=== PATIENT | male | born 1965 | race Two or more races ===

== ENCOUNTER → 2020-11-24 | Outpatient (CLI) | payer OTHER ==
[2020-11-24 12:54] LABS: ALBUMIN 3.5 g/dL (3.4-5.0); ANION GAP 5 mmol/L (5-15); CALCIUM 8.5 mg/dL (8.5-10.1); CHLORIDE 108 mmol/L (98-107); CHOLESTEROL, TOTAL 266 mg/dL (140-239)
[2020-11-24 13:04] LABS: ALANINE AMINOTRANSFERASE 30 U/L (12-78); ALKALINE PHOSPHATASE 69 U/L (45-117); BILIRUBIN,TOTAL 0.4 mg/dL (0.2-1.0); CHOL/HDL RATIO 2.8; CREATININE 1.19 mg/dL (0.7-1.3); HDL CHOL % 36 % (26-37); HDL CHOLESTEROL (DIRECT) 95 mg/dL (40-60); LDL CHOLESTEROL,CALCULATED 160 mg/dL (54-169); LDL/HDL RATIO 1.7 (0.5-3.0); TOTAL PROTEIN 7.5 g/dL (6.4-8.2); TRIGLYCERIDES 54 mg/dL (50-200); VLDL CHOLESTEROL 11 mg/dL (0-25)
== END | disposition home or self-care (01) ==
LOC: LAB 12:26
PROVIDERS: ATTEND Family Medicine
DX: Z13.1 Encounter for screening for diabetes mellitus (principal); Z12.5 Encounter for screening for malignant neoplasm of prostate; Z13.220 Encounter for screening for lipoid disorders; R03.0 Elevated blood-pressure reading, without diagnosis of hypertension
CPT/HCPCS: 36415; 80053; 80061; 83036; 84153; G0103

== ENCOUNTER → 2020-12-07 | Outpatient (CLI) | payer OTHER | END | disposition home or self-care (01) | LOC: CFH 07:05 | PROVIDERS: ATTEND Family Medicine | DX: N40.0 Benign prostatic hyperplasia without lower urinary tract symptoms (principal); N23 Unspecified renal colic | CPT/HCPCS: 76770 ==

== ENCOUNTER 2021-02-09 15:32 | Emergency (ER) | payer OTHER ==
[~2021-02-09] VITALS: Ht 182.9 cm; Wt 77.5 kg
--- NOTE | 2021-02-09 15:32 | NUR ---
BIBA C/O WORSENING LOW BACK PAIN SINCE LAST NIGHT, DENIES INJURY, RAD PAIN OR URIN S/S; PIV, BG 124, 200MCG [place], 2MG VERSED ENGINEERING MANAGER PER EMS; PT TRANSFERRED SELF [facility] TO [facility], CHANGED INTO GOWN, MONITORS IN PLACE, CALL LIGHT WITHIN REACH.
--- NOTE | 2021-02-09 15:45 | NUR ---
[facility] [phone]
[2021-02-09] MEDS ORDERED: ONDANSETRON 2MG/ML, 2ML IVPush ONE (16:00)
[2021-02-09] MEDS ORDERED: KETOROLAC 30 MG/1 ML IV ONE (16:00)
[2021-02-09] MEDS ORDERED: HYDROmorphone 1 MG/ML, 1ML INJ IVPush PRN (16:00)
--- NOTE | 2021-02-09 16:30 | NUR ---
PT LAYING ON GURNEY WITH C/O PAIN- REPOSITIONING HELPFUL, RESPONDS APPROP TO STAFF, VISITOR AT BS, COMFORT MEASURES PROVIDED, CALL LIGHT WITHIN REACH.
[2021-02-09] MEDS ORDERED: HYDROmorphone 2 MG/ML, 1ML ONE (16:56)
[2021-02-09] MEDS ORDERED: KETOROLAC 30 MG/1 ML ONE (16:57)
[2021-02-09] MEDS ORDERED: ONDANSETRON 2MG/ML, 2ML ONE (16:57)
--- NOTE | 2021-02-09 17:35 | NUR ---
PT LAYING ON GURNEY ABLE TO DOZE OFF AFTER PAIN MEDS, RESPONDS APPROP TO STAFF, NAD, VISITOR AT BS, NO NEEDS AT THIS TIME, CALL LIGHT WITHIN REACH.
--- NOTE | 2021-02-09 19:01 | NUR ---
REPORT GIVEN TO JUAN PABLO KEMP
[2021-02-09 19:39] VITALS: BP 117/68
--- NOTE | 2021-02-09 19:39 | NUR ---
Patient/Caregiver given discharge instructions and they have confirmed that they understand the instructions. Patient ambulatory with steady gait. NAD, all questions answered appropriately, denies additional needs at this time. No personal belongings left in room after discharge.
[2021-02-25] MEDS ORDERED: OXYC1TAB14 PO (12:09)
== END 2021-02-09 19:40 | disposition home or self-care (01) ==
LOC: ED 16:02
DX: S39.012A Strain of muscle, fascia and tendon of lower back, initial encounter (principal); X58.XXXA Exposure to other specified factors, initial encounter; Y93.89 Activity, other specified; Y92.89 Other specified places as the place of occurrence of the external cause; Y99.8 Other external cause status
CPT/HCPCS: 72110; 96374; 96375; 99284; J1170; J1885; J2405; J7512

== ENCOUNTER 2021-02-11 06:00 | Emergency (ER) | payer OTHER ==
[~2021-02-11] VITALS: Ht 182.9 cm; Wt 80.0 kg
[2021-02-11] MEDS ORDERED: KETOROLAC 30 MG/1 ML ONE (06:56)
[2021-02-11] MEDS ORDERED: HYDROmorphone 2 MG/ML, 1ML ONE (06:57)
[2021-02-11] MEDS ORDERED: KETOROLAC 30 MG/1 ML IM ONE (07:00)
[2021-02-11] MEDS ORDERED: HYDROmorphone 2 MG/ML, 1ML IM ONE (07:00)
--- NOTE | 2021-02-11 07:09 | NUR ---
PATIENT C/O 10/10 LOWER BACK PAIN. PATIENT MEDICATED PER eMAR, EDUCATED PATIENT ABOUT NEED FOR URINE SAMPLE. CONNECTED TO MONITOR, VSS, CALL LIGHT WITHIN REACH. AT BEDSIDE.
--- NOTE | 2021-02-11 07:29 | NUR ---
URINE COLLECTED AND WALKED TO LAB. PATIENT REPORTS RELIEF FROM PAIN WITH MEDICATION.
[2021-02-11 07:41] LABS: MICROSCOPIC AUTO
[2021-02-11 07:50] LABS: BASOPHILS % (AUTO) 0 % (0-1); EOSINOPHILS % (AUTO) 0 % (1-7); LYMPHOCYTES % (AUTO) 3 % (22-44); MEAN CORPUSCULAR HEMOGLOBIN 27.3 pg (27.5-34.5); MEAN CORPUSCULAR HGB CONC 32.7 g/dL (33.2-36.2); MEAN PLATELET VOLUME 8.7 fL (7.4-10.4); MONOCYTES % (AUTO) 6 % (2-9); NEUTROPHILS % (AUTO) 91 % (42-75); PLATELET COUNT 144 x10^3/uL (130-400); RED CELL DISTRIBUTION WIDTH 14.7 % (9.4-14.8)
[2021-02-11 07:53] LABS: ALBUMIN 3.2 g/dL (3.4-5.0); ANION GAP 9 mmol/L (5-15); CALCIUM 8.9 mg/dL (8.5-10.1); CHLORIDE 102 mmol/L (98-107); CREATININE 1.28 mg/dL (0.7-1.3)
--- NOTE | 2021-02-11 08:11 | NUR ---
PATIENT RESTING IN [facility], CONNECTED TO MONITOR, VSS, CALL LIGHT WITHIN REACH. AT BEDSIDE. PATIENT UP FOR RECHECK.
--- NOTE | 2021-02-11 09:10 | NUR ---
PATIENT RESTING IN [facility], CONNECTED TO MONITOR, VSS, CALL LIGHT WITHIN REACH, AT BEDSIDE. PATIENT UP FOR RECHECK.
[2021-02-11 10:32] VITALS: BP 97/54
--- NOTE | 2021-02-11 10:33 | NUR ---
Patient and spouse given discharge instructions and prescriptions and they have confirmed that they understand the instructions. Patient wheeled by significant other from ED. NAD, all questions answered appropriately, denies additional needs at this time. No personal belongings left in room after discharge.
[2021-02-25] MEDS ORDERED: OXYC1TAB14 PO (12:09)
== END 2021-02-11 10:34 | disposition home or self-care (01) ==
LOC: ED 07:54
DX: S39.012A Strain of muscle, fascia and tendon of lower back, initial encounter (principal); D72.829 Elevated white blood cell count, unspecified; X58.XXXA Exposure to other specified factors, initial encounter; Y93.89 Activity, other specified; Y92.89 Other specified places as the place of occurrence of the external cause; Y99.8 Other external cause status
CPT/HCPCS: 36415; 80048; 81001; 82040; 85025; 96372; 99285; J1170; J1885

== ENCOUNTER 2021-02-14 16:54 | Inpatient (IN) | payer OTHER ==
[~2021-02-14] VITALS: Ht 182.9 cm; Wt 79.4 kg
[2021-02-14 19:00] LABS: BASOPHILS % (AUTO) 1 % (0-1); EOSINOPHILS % (AUTO) 0 % (1-7); LYMPHOCYTES % (AUTO) 14 % (22-44); MEAN CORPUSCULAR HEMOGLOBIN 27.7 pg (27.5-34.5); MEAN CORPUSCULAR HGB CONC 33.2 g/dL (33.2-36.2); MEAN PLATELET VOLUME 8.9 fL (7.4-10.4); MONOCYTES % (AUTO) 12 % (2-9); NEUTROPHILS % (AUTO) 73 % (42-75); PLATELET COUNT 195 x10^3/uL (130-400); RED BLOOD COUNT 4.95 x10^6/uL (4.38-5.82); RED CELL DISTRIBUTION WIDTH 14.7 % (9.4-14.8)
[2021-02-14 19:27] LABS: ALBUMIN 2.4 g/dL (3.4-5.0); ANION GAP 6 mmol/L (5-15); CALCIUM 9.4 mg/dL (8.5-10.1); CHLORIDE 98 mmol/L (98-107)
[2021-02-14 19:41] LABS: ALANINE AMINOTRANSFERASE 177 U/L (12-78); ALKALINE PHOSPHATASE 216 U/L (45-117); BILIRUBIN,TOTAL 0.7 mg/dL (0.2-1.0); CREATININE 1.18 mg/dL (0.7-1.3); TOTAL PROTEIN 8.6 g/dL (6.4-8.2)
[2021-02-14] MEDS ORDERED: ONDANSETRON 2MG/ML, 2ML IVPush ONE (21:00)
[2021-02-14] MEDS ORDERED: HYDROmorphone 1 MG/ML, 1ML INJ IV ONE (21:00)
--- NOTE | 2021-02-14 21:00 | NUR ---
pt bladder scanned 277 ml, post void showed 94 ml. erp updated, lyons held. ua sent as clean catch
[2021-02-14] MEDS ORDERED: ONDANSETRON 2MG/ML, 2ML ONE (21:27)
[2021-02-14] MEDS ORDERED: HYDROmorphone 2 MG/ML, 1ML ONE (21:27)
[2021-02-14 21:34] LABS: MICROSCOPIC AUTO
--- NOTE | 2021-02-14 22:39 | NUR ---
pt at ct at this time
[2021-02-14] MEDS ORDERED: OMNIPAQUE 350 MG/ML, 100ML BOTTLE ONE (22:45)
[2021-02-15] MEDS ORDERED: HYDROcodone/APAP 10/325 MG TABLET PO ONE
[2021-02-15] MEDS ORDERED: HYDROcodone/APAP 10/325 MG TABLET ONE (00:03)
--- NOTE | 2021-02-15 00:20 | NUR ---
REPORT GIVEN TO VIRIDIANA SOLANO
[2021-02-15] MEDS ORDERED: ONDANSETRON ODT 4 MG PO PRN (00:30)
[2021-02-15] MEDS ORDERED: ONDANSETRON 2MG/ML, 2ML IVPush PRN (00:30)
[2021-02-15] MEDS ORDERED: ENALAPRILAT 1.25 MG/ML, 2ML IVPush PRN (00:30)
[2021-02-15 01:02] VITALS: BP 128/75
[2021-02-15] MEDS: DIPHENHYDRAMINE 25 MG CAPSULE PO PRN (01:36)
[2021-02-15] MEDS: KETOROLAC 30 MG/1 ML IV PRN ×2 (01:36→21:43)
[2021-02-15] MEDS ORDERED: METH100V PO (02:37)
[2021-02-15] MEDS ORDERED: NAPR-685 PO (02:37)
[2021-02-15] MEDS: PINK LADY ENEMA 490 ML BOTTLE PR ONE (06:04)
[2021-02-15] MEDS: morphine SULFATE 10 MG/ML, 1ML IVPush PRN ×4 (06:14→18:39)
[2021-02-15 06:30] VITALS: BP 118/74
[2021-02-15] MEDS: FINASTERIDE 5 MG TABLET PO SCH (08:50)
[2021-02-15] MEDS: POLYETHYLENE GLYCOL 17 GM PACKET PO SCH ×2 (08:50→20:14)
[2021-02-15] MEDS: LIDODERM 5% PATCH TD SCH (10:54)
[2021-02-15 13:23] VITALS: BP 106/68
[2021-02-15] MEDS ORDERED: GADOTERATE 7.5 MMOL/15ML SYR ONE (16:50)
[2021-02-15] MEDS ORDERED: VANCOMYCIN PER PHARMACY MC PRN (17:30)
[2021-02-15] MEDS ORDERED: PHARMACOKINETIC MONITORING MC PRN (18:00)
[2021-02-15] MEDS: PIPERACILLIN/TAZO 3.375 GM in DEXTROSE 5% 50 ML IVPB SCH (18:39)
[2021-02-15 19:46] VITALS: BP 121/78
[2021-02-15] MEDS: VANCOMYCIN 1,500 MG in SODIUM CHLORIDE 0.9% 250 ML IV SCH (20:14)
[2021-02-15] MEDS: MELATONIN 5 MG TABLET PO PRN (21:42)
[2021-02-16 01:24] VITALS: BP 143/76
[2021-02-16] MEDS: PINK LADY ENEMA 490 ML BOTTLE PR ONE (01:36)
[2021-02-16] MEDS: PIPERACILLIN/TAZO 3.375 GM in DEXTROSE 5% 50 ML IVPB SCH ×2 (02:00→10:33)
[2021-02-16] MEDS: ACETAMINOPHEN 325 MG TABLET PO PRN ×2 (03:33→19:55)
[2021-02-16 06:56] VITALS: BP 138/76
[2021-02-16] MEDS: morphine SULFATE 10 MG/ML, 1ML IVPush PRN ×3 (07:16→20:19)
[2021-02-16 08:10] LABS: BASOPHILS % (AUTO) 0 % (0-1); EOSINOPHILS % (AUTO) 0 % (1-7); LYMPHOCYTES % (AUTO) 16 % (22-44); MEAN CORPUSCULAR HEMOGLOBIN 27.3 pg (27.5-34.5); MEAN CORPUSCULAR HGB CONC 33.2 g/dL (33.2-36.2); MEAN PLATELET VOLUME 8.4 fL (7.4-10.4); MONOCYTES % (AUTO) 11 % (2-9); NEUTROPHILS % (AUTO) 73 % (42-75); PLATELET COUNT 219 x10^3/uL (130-400); RED BLOOD COUNT 4.37 x10^6/uL (4.38-5.82); RED CELL DISTRIBUTION WIDTH 14.9 % (9.4-14.8)
[2021-02-16 08:13] LABS: CHLORIDE 99 mmol/L (98-107)
[2021-02-16 08:21] LABS: ALANINE AMINOTRANSFERASE 168 U/L (12-78); ALKALINE PHOSPHATASE 180 U/L (45-117); ANION GAP 9 mmol/L (5-15); BILIRUBIN,TOTAL 0.6 mg/dL (0.2-1.0); CALCIUM 8.8 mg/dL (8.5-10.1); CREATININE 1.23 mg/dL (0.7-1.3); TOTAL PROTEIN 7.7 g/dL (6.4-8.2)
[2021-02-16] MEDS: VANCOMYCIN 1,500 MG in SODIUM CHLORIDE 0.9% 250 ML IV SCH ×2 (08:41→19:55)
[2021-02-16] MEDS: POLYETHYLENE GLYCOL 17 GM PACKET PO SCH ×2 (08:41→19:55)
[2021-02-16] MEDS: FINASTERIDE 5 MG TABLET PO SCH (08:42)
[2021-02-16 09:11] LABS: ALBUMIN 1.3 g/dL (3.4-5.0)
[2021-02-16] MEDS ORDERED: POTASSIUM CHLORIDE 20 MEQ TAB.ER.PRT PO ONE (09:30)
[2021-02-16] MEDS: LIDODERM 5% PATCH TD SCH (10:33)
[2021-02-16 12:22] VITALS: BP 132/75
[2021-02-16 19:21] VITALS: BP 142/81
[2021-02-16] MEDS: MELATONIN 5 MG TABLET PO PRN (20:23)
[2021-02-17 01:15] VITALS: BP 147/83
[2021-02-17] MEDS: METHOCARBAMOL 500 MG TABLET PO PRN (02:01)
[2021-02-17] MEDS: DIPHENHYDRAMINE 25 MG CAPSULE PO PRN (02:44)
[2021-02-17 06:23] LABS: BASOPHILS % (AUTO) 0 % (0-1); EOSINOPHILS % (AUTO) 0 % (1-7); LYMPHOCYTES % (AUTO) 12 % (22-44); MEAN CORPUSCULAR HEMOGLOBIN 26.8 pg (27.5-34.5); MEAN PLATELET VOLUME 8.2 fL (7.4-10.4); MONOCYTES % (AUTO) 8 % (2-9); NEUTROPHILS % (AUTO) 79 % (42-75); PLATELET COUNT 245 x10^3/uL (130-400); RED BLOOD COUNT 4.17 x10^6/uL (4.38-5.82); RED CELL DISTRIBUTION WIDTH 14.7 % (9.4-14.8)
[2021-02-17 06:33] LABS: CHLORIDE 99 mmol/L (98-107)
[2021-02-17 06:41] LABS: ALANINE AMINOTRANSFERASE 129 U/L (12-78); ALBUMIN 1.9 g/dL (3.4-5.0); ALKALINE PHOSPHATASE 156 U/L (45-117); ANION GAP 8 mmol/L (5-15); BILIRUBIN,TOTAL 0.7 mg/dL (0.2-1.0); CALCIUM 8.4 mg/dL (8.5-10.1); CREATININE 1.19 mg/dL (0.7-1.3); TOTAL PROTEIN 7.5 g/dL (6.4-8.2)
[2021-02-17 06:58] VITALS: BP 151/78
[2021-02-17] MEDS: POLYETHYLENE GLYCOL 17 GM PACKET PO SCH (07:50)
[2021-02-17] MEDS: FINASTERIDE 5 MG TABLET PO SCH (07:50)
[2021-02-17] MEDS: morphine SULFATE 10 MG/ML, 1ML IVPush PRN ×3 (08:06→23:06)
[2021-02-17] MEDS ORDERED: TRAZODONE 50MG TABLET PO PRN (08:30)
[2021-02-17] MEDS ORDERED: MAGNESIUM CITRATE 300ML ORAL SOL PO PRN (08:30)
[2021-02-17] MEDS ORDERED: POLYETHYLENE GLYCOL 17 GM PACKET PO PRN (08:30)
[2021-02-17] MEDS ORDERED: BISACODYL 10 MG SUPP PR PRN (08:30)
[2021-02-17] MEDS: MAGNESIUM CITRATE 300ML ORAL SOL PO PRN (08:59)
[2021-02-17] MEDS: CEFAZOLIN 2,000 MG in SODIUM CHLORIDE 0.9% 50 ML IV SCH ×2 (08:59→17:00)
[2021-02-17] MEDS: LIDODERM 5% PATCH TD SCH ×2 (10:00→21:08)
[2021-02-17 13:58] VITALS: BP 127/82
[2021-02-17] MEDS: CEFAZOLIN PMX 2GM/50ML 50 ML IVPB SCH (17:14)
[2021-02-17 19:29] VITALS: BP 123/77
[2021-02-18] MEDS: TEMAZEPAM 15 MG CAPSULE PO PRN ×2 (00:24→23:11)
[2021-02-18] MEDS: CEFAZOLIN PMX 2GM/50ML 50 ML IVPB SCH ×3 (00:51→16:24)
[2021-02-18 00:55] VITALS: BP 128/77
[2021-02-18 05:49] LABS: BASOPHILS % (AUTO) 0 % (0-1); EOSINOPHILS % (AUTO) 0 % (1-7); LYMPHOCYTES % (AUTO) 17 % (22-44); MEAN CORPUSCULAR HEMOGLOBIN 27.6 pg (27.5-34.5); MEAN CORPUSCULAR HGB CONC 33.6 g/dL (33.2-36.2); MEAN PLATELET VOLUME 8.2 fL (7.4-10.4); MONOCYTES % (AUTO) 8 % (2-9); NEUTROPHILS % (AUTO) 75 % (42-75); PLATELET COUNT 284 x10^3/uL (130-400); RED BLOOD COUNT 4.31 x10^6/uL (4.38-5.82); RED CELL DISTRIBUTION WIDTH 14.5 % (9.4-14.8)
[2021-02-18 05:54] LABS: ALBUMIN 2.1 g/dL (3.4-5.0); ANION GAP 6 mmol/L (5-15); CALCIUM 9.1 mg/dL (8.5-10.1); CHLORIDE 97 mmol/L (98-107)
[2021-02-18 05:59] LABS: ALANINE AMINOTRANSFERASE 117 U/L (12-78); ALKALINE PHOSPHATASE 164 U/L (45-117); BILIRUBIN,TOTAL 0.6 mg/dL (0.2-1.0); CREATININE 1.23 mg/dL (0.7-1.3); TOTAL PROTEIN 8.4 g/dL (6.4-8.2)
[2021-02-18 07:15] VITALS: BP 145/81
[2021-02-18] MEDS: FINASTERIDE 5 MG TABLET PO SCH (09:00)
[2021-02-18] MEDS: ACETAMINOPHEN 325 MG TABLET PO PRN ×2 (11:14→18:57)
[2021-02-18] MEDS: morphine SULFATE 10 MG/ML, 1ML IVPush PRN ×2 (11:15→19:32)
[2021-02-18] MEDS ORDERED: SODIUM CHLORIDE 0.9% 1,000 ML IV SCH (12:00)
[2021-02-18 12:53] VITALS: BP 142/82
[2021-02-18] MEDS ORDERED: PROPOFOL 10 MG/ML, 20ML ONE ×2 (14:18)
[2021-02-18 19:30] VITALS: BP 125/74
[2021-02-18] MEDS: LIDODERM 5% PATCH TD SCH (23:14)
[2021-02-19 00:44] VITALS: BP 135/82
[2021-02-19] MEDS: CEFAZOLIN PMX 2GM/50ML 50 ML IVPB SCH ×3 (00:47→17:04)
[2021-02-19] MEDS: ACETAMINOPHEN 325 MG TABLET PO PRN (06:25)
[2021-02-19 07:30] VITALS: BP 122/73
[2021-02-19] MEDS: FINASTERIDE 5 MG TABLET PO SCH ×2 (08:47→10:08)
[2021-02-19] MEDS: morphine SULFATE 10 MG/ML, 1ML IVPush PRN (08:55)
[2021-02-19 12:02] VITALS: BP 119/84
[2021-02-19] MEDS: OXYcodone/APAP 7.5/325MG TABLET PO PRN (17:08)
[2021-02-19 19:48] VITALS: BP 108/75
[2021-02-19] MEDS: MAGNESIUM CITRATE 300ML ORAL SOL PO PRN (20:27)
[2021-02-19] MEDS: TEMAZEPAM 15 MG CAPSULE PO PRN (23:40)
[2021-02-20] MEDS: CEFAZOLIN PMX 2GM/50ML 50 ML IVPB SCH ×2 (01:03→08:06)
[2021-02-20 02:17] VITALS: BP 117/58
[2021-02-20] MEDS: OXYcodone/APAP 7.5/325MG TABLET PO PRN ×5 (03:19→23:46)
[2021-02-20 05:14] LABS: BASOPHILS % (AUTO) 0 % (0-1); EOSINOPHILS % (AUTO) 1 % (1-7); LYMPHOCYTES % (AUTO) 13 % (22-44); MEAN CORPUSCULAR HEMOGLOBIN 27.2 pg (27.5-34.5); MEAN CORPUSCULAR HGB CONC 33.2 g/dL (33.2-36.2); MEAN PLATELET VOLUME 7.7 fL (7.4-10.4); MONOCYTES % (AUTO) 7 % (2-9); NEUTROPHILS % (AUTO) 79 % (42-75); PLATELET COUNT 337 x10^3/uL (130-400); RED BLOOD COUNT 3.95 x10^6/uL (4.38-5.82); RED CELL DISTRIBUTION WIDTH 14.7 % (9.4-14.8)
[2021-02-20 05:24] LABS: ALBUMIN 1.9 g/dL (3.4-5.0); ANION GAP 5 mmol/L (5-15); CALCIUM 8.4 mg/dL (8.5-10.1); CHLORIDE 98 mmol/L (98-107)
[2021-02-20 05:25] LABS: CREATININE 1.13 mg/dL (0.7-1.3)
[2021-02-20 07:20] VITALS: BP 118/70
[2021-02-20] MEDS: FINASTERIDE 5 MG TABLET PO SCH (08:06)
[2021-02-20] MEDS: LIDODERM 5% PATCH TD SCH (11:53)
[2021-02-20 13:52] VITALS: BP 111/69
[2021-02-20] MEDS: NAFCILLIN 2 GM in DEXTROSE 5% 100 ML IV SCH ×3 (15:45→23:40)
[2021-02-20] MEDS: ACETAMINOPHEN 325 MG TABLET PO PRN (18:31)
[2021-02-20 19:34] VITALS: BP 113/71
[2021-02-20] MEDS: TEMAZEPAM 15 MG CAPSULE PO PRN (23:40)
[2021-02-21 00:15] VITALS: BP 124/74
[2021-02-21] MEDS: NAFCILLIN 2 GM in DEXTROSE 5% 100 ML IV SCH ×2 (03:23→06:34)
[2021-02-21] MEDS: OXYcodone/APAP 7.5/325MG TABLET PO PRN ×4 (04:02→20:23)
[2021-02-21] MEDS: ACETAMINOPHEN 325 MG TABLET PO PRN ×3 (04:07→21:39)
[2021-02-21 05:31] LABS: BASOPHILS % (AUTO) 1 % (0-1); EOSINOPHILS % (AUTO) 2 % (1-7); LYMPHOCYTES % (AUTO) 16 % (22-44); MEAN CORPUSCULAR HGB CONC 34.1 g/dL (33.2-36.2); MEAN PLATELET VOLUME 7.9 fL (7.4-10.4); MONOCYTES % (AUTO) 8 % (2-9); NEUTROPHILS % (AUTO) 74 % (42-75); PLATELET COUNT 360 x10^3/uL (130-400); RED BLOOD COUNT 3.81 x10^6/uL (4.38-5.82); RED CELL DISTRIBUTION WIDTH 14.7 % (9.4-14.8)
[2021-02-21 05:35] LABS: ALBUMIN 1.7 g/dL (3.4-5.0); ANION GAP 4 mmol/L (5-15); CALCIUM 8.3 mg/dL (8.5-10.1); CHLORIDE 97 mmol/L (98-107)
[2021-02-21 05:45] LABS: ALANINE AMINOTRANSFERASE 69 U/L (12-78); ALKALINE PHOSPHATASE 116 U/L (45-117); BILIRUBIN,TOTAL 0.7 mg/dL (0.2-1.0); TOTAL PROTEIN 7.5 g/dL (6.4-8.2)
[2021-02-21 07:17] LABS: HCT (SEDRATE) 31.3 % (39.2-51.8)
[2021-02-21 07:55] VITALS: BP 100/66
[2021-02-21] MEDS: FINASTERIDE 5 MG TABLET PO SCH ×2 (09:22→16:17)
[2021-02-21] MEDS: CEFAZOLIN PMX 2GM/50ML 50 ML IVPB SCH (12:00)
[2021-02-21] MEDS: RIFAMPIN 300 MG CAPSULE PO SCH (12:00)
[2021-02-21] MEDS: CEFAZOLIN 2,000 MG in SODIUM CHLORIDE 0.9% 50 ML IV SCH ×2 (12:01→18:36)
[2021-02-21] MEDS: LIDODERM 5% PATCH TD SCH (12:01)
[2021-02-21 12:39] VITALS: BP 101/68
[2021-02-21 19:26] VITALS: BP 123/80
[2021-02-21] MEDS: TEMAZEPAM 15 MG CAPSULE PO PRN (21:39)
[2021-02-21] MEDS: morphine SULFATE 10 MG/ML, 1ML IVPush PRN (21:40)
[2021-02-22 00:41] VITALS: BP 103/71
[2021-02-22] MEDS: CEFAZOLIN 2,000 MG in SODIUM CHLORIDE 0.9% 50 ML IV SCH (03:34)
[2021-02-22] MEDS: ACETAMINOPHEN 325 MG TABLET PO PRN ×4 (03:40→20:36)
[2021-02-22] MEDS: morphine SULFATE 10 MG/ML, 1ML IVPush PRN ×4 (03:41→20:36)
[2021-02-22 05:22] LABS: ANION GAP 5 mmol/L (5-15); CALCIUM 8.9 mg/dL (8.5-10.1); CHLORIDE 101 mmol/L (98-107); CREATININE 1.15 mg/dL (0.7-1.3)
[2021-02-22 06:48] VITALS: BP 110/75
[2021-02-22] MEDS: RIFAMPIN 300 MG CAPSULE PO SCH (09:13)
[2021-02-22] MEDS: FINASTERIDE 5 MG TABLET PO SCH (09:13)
[2021-02-22 10:24] LABS: BASOPHILS % (AUTO) 1 % (0-1); EOSINOPHILS % (AUTO) 1 % (1-7); LYMPHOCYTES % (AUTO) 16 % (22-44); MEAN CORPUSCULAR HEMOGLOBIN 28.4 pg (27.5-34.5); MEAN CORPUSCULAR HGB CONC 34.2 g/dL (33.2-36.2); MEAN PLATELET VOLUME 7.9 fL (7.4-10.4); MONOCYTES % (AUTO) 7 % (2-9); NEUTROPHILS % (AUTO) 75 % (42-75); PLATELET COUNT 473 x10^3/uL (130-400); RED BLOOD COUNT 4.07 x10^6/uL (4.38-5.82); RED CELL DISTRIBUTION WIDTH 14.8 % (9.4-14.8)
[2021-02-22] MEDS: LIDODERM 5% PATCH TD SCH (11:52)
[2021-02-22] MEDS: CEFAZOLIN PMX 2GM/50ML 50 ML IVPB SCH ×2 (11:53→20:23)
[2021-02-22 12:11] VITALS: BP 106/77
[2021-02-22 18:58] VITALS: BP 107/71
[2021-02-22] MEDS: TEMAZEPAM 15 MG CAPSULE PO PRN (20:26)
[2021-02-23 00:32] VITALS: BP 108/74
[2021-02-23] MEDS: morphine SULFATE 10 MG/ML, 1ML IVPush PRN ×2 (04:10→23:09)
[2021-02-23] MEDS: CEFAZOLIN PMX 2GM/50ML 50 ML IVPB SCH ×3 (04:10→20:09)
[2021-02-23] MEDS: ACETAMINOPHEN 325 MG TABLET PO PRN ×4 (04:16→23:08)
[2021-02-23 07:17] VITALS: BP 111/72
[2021-02-23] MEDS: FINASTERIDE 5 MG TABLET PO SCH (09:34)
[2021-02-23] MEDS: RIFAMPIN 300 MG CAPSULE PO SCH (09:35)
[2021-02-23] MEDS: LIDODERM 5% PATCH TD SCH (11:42)
[2021-02-23] MEDS: OXYcodone/APAP 7.5/325MG TABLET PO PRN ×2 (11:49→18:25)
[2021-02-23] MEDS: TAMSULOSIN 0.4 MG CAP.ER.24H PO SCH (12:37)
[2021-02-23 13:16] VITALS: BP 120/78
[2021-02-23 18:28] VITALS: BP 109/71
[2021-02-23] MEDS: TEMAZEPAM 15 MG CAPSULE PO PRN (23:08)
[2021-02-24] VITALS: BP 110/71
[2021-02-24] MEDS: OXYcodone/APAP 7.5/325MG TABLET PO PRN ×4 (03:14→21:18)
[2021-02-24] MEDS: CEFAZOLIN PMX 2GM/50ML 50 ML IVPB SCH ×3 (03:59→20:41)
[2021-02-24 07:16] VITALS: BP 108/70
[2021-02-24] MEDS: FINASTERIDE 5 MG TABLET PO SCH (09:15)
[2021-02-24] MEDS: TAMSULOSIN 0.4 MG CAP.ER.24H PO SCH (09:15)
[2021-02-24] MEDS: ACETAMINOPHEN 325 MG TABLET PO PRN ×3 (09:15→21:18)
[2021-02-24] MEDS: RIFAMPIN 300 MG CAPSULE PO SCH (09:15)
[2021-02-24] MEDS: LIDODERM 5% PATCH TD SCH (12:40)
[2021-02-24 13:29] VITALS: BP 109/70
[2021-02-24] MEDS ORDERED: GADOTERATE 7.5 MMOL/15ML SYR ONE (18:04)
[2021-02-24 19:38] VITALS: BP 97/63
[2021-02-24] MEDS: TEMAZEPAM 15 MG CAPSULE PO PRN (21:18)
[2021-02-25 00:23] VITALS: BP 137/71
[2021-02-25] MEDS: OXYcodone/APAP 7.5/325MG TABLET PO PRN ×3 (02:26→19:23)
[2021-02-25] MEDS: METHOCARBAMOL 500 MG TABLET PO PRN (02:26)
[2021-02-25] MEDS: CEFAZOLIN PMX 2GM/50ML 50 ML IVPB SCH ×3 (04:32→19:55)
[2021-02-25 08:54] LABS: BASOPHILS % (AUTO) 0 % (0-1); EOSINOPHILS % (AUTO) 3 % (1-7); LYMPHOCYTES % (AUTO) 18 % (22-44); MEAN CORPUSCULAR HEMOGLOBIN 28.7 pg (27.5-34.5); MEAN CORPUSCULAR HGB CONC 34.5 g/dL (33.2-36.2); MEAN PLATELET VOLUME 7.2 fL (7.4-10.4); MONOCYTES % (AUTO) 6 % (2-9); NEUTROPHILS % (AUTO) 73 % (42-75); PLATELET COUNT 551 x10^3/uL (130-400); RED BLOOD COUNT 3.97 x10^6/uL (4.38-5.82)
[2021-02-25] MEDS: TAMSULOSIN 0.4 MG CAP.ER.24H PO SCH ×2 (09:00→11:44)
[2021-02-25 09:03] LABS: ANION GAP 7 mmol/L (5-15); CALCIUM 9.5 mg/dL (8.5-10.1); CHLORIDE 102 mmol/L (98-107); CREATININE 1.04 mg/dL (0.7-1.3)
[2021-02-25 09:32] VITALS: BP 105/64
[2021-02-25] MEDS: FINASTERIDE 5 MG TABLET PO SCH (11:39)
[2021-02-25] MEDS: LIDODERM 5% PATCH TD SCH (11:43)
[2021-02-25] MEDS: RIFAMPIN 300 MG CAPSULE PO SCH (11:44)
[2021-02-25] MEDS ORDERED: OXYC1TAB12 PO (12:09)
[2021-02-25] MEDS ORDERED: TAMS-11 PO (12:09)
[2021-02-25] MEDS ORDERED: ERTA1VIA IV (12:09)
[2021-02-25] MEDS ORDERED: POLY17PO5 PO (12:09)
[2021-02-25] MEDS: ACETAMINOPHEN 325 MG TABLET PO PRN ×2 (12:30→19:23)
[2021-02-25 12:37] VITALS: BP 118/76
== END 2021-02-25 20:50 | disposition home or self-care (01) | DRG 872 ==
LOC: ED 21:26 → SUATTDRO 02-15 00:10 → OBSVTOIN 02-15 00:11 → EDIP 02-15 00:11 → INTOOBSV 02-15 00:11 → 3N 02-15 00:50
PROVIDERS: ADMIT Family Medicine; ATTEND Internal Medicine
PROC: 02HV33Z Insertion of Infusion Device into Superior Vena Cava, Percutaneous Approach (ICD-10-PCS; principal; 2021-02-25)
PROC: B5181ZA Fluoroscopy of Superior Vena Cava using Low Osmolar Contrast, Guidance (ICD-10-PCS; 2021-02-25)
PROC: B548ZZA Ultrasonography of Superior Vena Cava, Guidance (ICD-10-PCS; 2021-02-25)
DX: A41.2 Sepsis due to unspecified staphylococcus (principal); E87.1 Hypo-osmolality and hyponatremia; I31.3 Pericardial effusion (noninflammatory); M60.009 Infective myositis, unspecified site; N39.0 Urinary tract infection, site not specified; B95.61 Methicillin susceptible Staphylococcus aureus infection as the cause of diseases classified elsewhere; D64.9 Anemia, unspecified; E87.6 Hypokalemia; H66.90 Otitis media, unspecified, unspecified ear; K59.00 Constipation, unspecified; Z20.822 Contact with and (suspected) exposure to COVID-19; M65.9 Synovitis and tenosynovitis, unspecified; N40.0 Benign prostatic hyperplasia without lower urinary tract symptoms; Z79.2 Long term (current) use of antibiotics; Z79.899 Other long term (current) drug therapy
CPT/HCPCS: 36415; 36573; 71046; 72158; 74018; 74177; 76770; 80048; 80053; 80069; 80202; 81001; 83735; 84100; 85025; 85651; 86140; 87040; 87077; 87086; 87147; 87186; 87635; 93308; 93312; 93321; 93325; 96374; 96375; G0378; J0690; J1170; J1885; J2405; J2543; J2704; J3370; Q9967; A9575; C1751; J2270; J7030; J7050; Q0163